=== PATIENT | female | born 1985 | race Caucasian/White ===

== ENCOUNTER 2018-09-22 16:26 | Inpatient (IN) | payer MEDICAID ==
[2018-09-22] MEDS ORDERED: LACTATED RINGER'S 1,000 ML IV (17:30)
[2018-09-22] MEDS ORDERED: GLUCAGON 1 MG INJ IM (19:30)
[2018-09-22] MEDS ORDERED: GLUCOSE GEL 15 GRAM TUBE PO ×2 (19:30)
[2018-09-22] MEDS ORDERED: DEXTROSE 50% 50 ML SYRINGE IV ×2 (19:30)
[2018-09-22] MEDS: LACTATED RINGER'S 1,000 ML IV (19:30)
[2018-09-22] MEDS ORDERED: GLUCOSE GEL 15 GRAM TUBE BUCCAL (19:30)
[2018-09-22 19:47] LABS: ADD MAN DIFF? NO
[2018-09-22 19:49] LABS: WHITE BLOOD COUNT 10.1 10^3/ul (4.8-10.8)
[2018-09-22 19:49] LABS: BASOPHILS % 0.3 % (0.0-2.0); EOSINOPHILS % 0.4 % (0.0-7.0); HEMOGLOBIN 10.8 g/dl (12.0-16.0); LYMPHOCYTES # 2.1 10^3/ul (0.8-2.9); LYMPHOCYTES % 21.1 % (15.0-51.0); MEAN CORPUSCULAR HEMOGLOBIN 21.9 pg (29.0-33.0); MEAN CORPUSCULAR HGB CONC 30.9 g/dl (32.0-37.0); MEAN CORPUSCULAR VOLUME 70.9 fl (82.0-101.0); MEAN PLATELET VOLUME 10.7 fl (7.4-10.4); MONOCYTE # 0.6 10^3/ul (0.3-0.9); MONOCYTES % 6.1 % (0.0-11.0); NEUTROPHIL # 7.2 10^3/ul (1.6-7.5); NEUTROPHILS % 71.6 % (39.0-77.0); PLATELET COUNT 313 10^3/UL (140-415); RED BLOOD COUNT 4.94 10^6/ul (4.20-5.40); RED CELL DISTRIBUTION WIDTH 15.4 % (11.5-14.5)
[2018-09-22 19:53] LABS: INR 0.98; PROTIME 13.1 Sec (11.9-14.9)
[2018-09-22 19:54] LABS: PARTIAL THROMBOPLASTIN TIME 28.3 Sec (23.0-35.0)
[2018-09-22] MEDS: BETAMET NA PHOS/AC(6 MG/ML) 2 ML INJ SYG IM (22:15)
[2018-09-22] MEDS: INSULIN ASPART [NOVOLOG] 3 ML PEN SC (22:18)
[2018-09-23] MEDS: LACTATED RINGER'S 1,000 ML IV ×3 (03:30→19:07)
[2018-09-23] MEDS: INSULIN ASPART [NOVOLOG] 3 ML PEN SC ×4 (07:03→20:44)
[2018-09-23] MEDS: FERROUS SULFATE (EC) 325 MG TAB PO (09:13)
[2018-09-23] MEDS: PRENATAL VITAMIN PO (09:13)
[2018-09-23] MEDS: DOCUSATE SODIUM 100 MG CAP PO (09:13)
[2018-09-23] MEDS: BETAMET NA PHOS/AC(6 MG/ML) 2 ML INJ SYG IM (21:27)
[2018-09-24] MEDS: LACTATED RINGER'S 1,000 ML IV ×3 (02:58→18:33)
[2018-09-24] MEDS: INSULIN ASPART [NOVOLOG] 3 ML PEN SC ×3 (06:54→17:35)
[2018-09-24] MEDS: FERROUS SULFATE (EC) 325 MG TAB PO (09:11)
[2018-09-24] MEDS: PRENATAL VITAMIN PO (09:11)
[2018-09-24] MEDS: DOCUSATE SODIUM 100 MG CAP PO (09:11)
[2018-09-25] MEDS: INSULIN ASPART [NOVOLOG] 3 ML PEN SC ×2 (02:28→20:56)
[2018-09-25] MEDS: LACTATED RINGER'S 1,000 ML IV ×2 (02:37→10:43)
[2018-09-25] MEDS ORDERED: LACTATED RINGER'S 1,000 ML IV (03:01)
[2018-09-25] MEDS ORDERED: METHYLERGONOVINE 0.2 MG INJ IM ×2 (03:30→23:30)
[2018-09-25] MEDS ORDERED: CARBOPROST 250 MCG INJ IM ×2 (03:30→23:30)
[2018-09-25] MEDS ORDERED: OXYTOCIN 30 UNITS/LR 500 ML IV ×3 (03:30→23:30)
[2018-09-25] MEDS ORDERED: MISOPROSTOL 200 MCG TAB PR ×2 (03:30→23:30)
[2018-09-25] MEDS ORDERED: BUTORPHANOL 2 MG INJ IV (03:30)
[2018-09-25] MEDS ORDERED: IBUPROFEN 600 MG TAB PO (03:30)
[2018-09-25] MEDS ORDERED: LIDOCAINE 1% (MPF) 30 ML INJ INJ (03:30)
[2018-09-25] MEDS: MISOPROSTOL 50 MCG CAPSULE PO ×3 (04:04→20:52)
[2018-09-25 07:30] LABS: HEPATITIS B SURFACE ANTIGEN NEGATIVE (NEGATIVE)
[2018-09-25] MEDS: DOCUSATE SODIUM 100 MG CAP PO (08:22)
[2018-09-25] MEDS: FERROUS SULFATE (EC) 325 MG TAB PO (08:22)
[2018-09-25] MEDS: PRENATAL VITAMIN PO (08:22)
[2018-09-25] MEDS: OXYTOCIN 30 UNITS/LR 500 ML IV (13:45)
[2018-09-25] MEDS ORDERED: FENTAnyl 2MCG/ML-ROPIV 0.2% 100 ML BAG EPI (17:30)
[2018-09-25] MEDS ORDERED: DIPHENHYDRAMINE 50 MG INJ IV (17:30)
[2018-09-25] MEDS ORDERED: ONDANSETRON 4 MG INJ IV ×2 (17:30→23:30)
[2018-09-25] MEDS ORDERED: NALOXONE (0.4 MG/ML) INJ IV (17:30)
[2018-09-25 20:20] LABS: RAPID PLASMA REAGIN NONREACTIVE (NR)
[2018-09-25] MEDS: DEXTROSE 5%-LR 1,000 ML IV (20:51)
[2018-09-25] MEDS ORDERED: OXYCODONE/ASPIRIN (4.88/325) TAB PO ×2 (23:30)
[2018-09-25] MEDS ORDERED: NACL 0.9% 3 ML SYG IV (23:30)
[2018-09-25] MEDS ORDERED: ACETAMINOPHEN 325 MG TAB PO (23:30)
[2018-09-25] MEDS ORDERED: WITCH HAZEL/GLYCERIN PAD PR (23:30)
[2018-09-26] MEDS: OXYTOCIN 30 UNITS/LR 500 ML IV ×2 (01:00→04:33)
[2018-09-26] MEDS: LANOLIN HPA 1 PKT TOP (04:35)
[2018-09-26] MEDS: IBUPROFEN 600 MG TAB PO ×5 (05:37→23:39)
[2018-09-26 08:14] LABS: ADD MAN DIFF? NO
[2018-09-26 08:17] LABS: BASOPHIL # 0.1 10^3/ul (0.0-0.1); BASOPHILS % 0.4 % (0.0-2.0); EOSINOPHILS % 0.1 % (0.0-7.0); HEMATOCRIT 35.8 % (37.0-47.0); HEMOGLOBIN 11.2 g/dl (12.0-16.0); LYMPHOCYTES # 2.1 10^3/ul (0.8-2.9); LYMPHOCYTES % 15.3 % (15.0-51.0); MEAN CORPUSCULAR HEMOGLOBIN 22.2 pg (29.0-33.0); MEAN CORPUSCULAR HGB CONC 31.3 g/dl (32.0-37.0); MEAN PLATELET VOLUME 10.5 fl (7.4-10.4); MONOCYTE # 0.9 10^3/ul (0.3-0.9); MONOCYTES % 6.3 % (0.0-11.0); NEUTROPHIL # 10.8 10^3/ul (1.6-7.5); NEUTROPHILS % 77.2 % (39.0-77.0); PLATELET COUNT 291 10^3/UL (140-415); RED BLOOD COUNT 5.04 10^6/ul (4.20-5.40); RED CELL DISTRIBUTION WIDTH 16.1 % (11.5-14.5)
[2018-09-26] MEDS: SENNA/DOCUSATE NA (8.6MG/50MG) TAB PO ×2 (09:49→21:05)
[2018-09-27] MEDS: IBUPROFEN 600 MG TAB PO ×2 (05:38→12:25)
[2018-09-27] MEDS: SENNA/DOCUSATE NA (8.6MG/50MG) TAB PO (09:00)
== END 2018-09-27 17:42 | disposition home or self-care (01) | DRG 807 ==
LOC: PP1 09-26 01:40 → OBT 16:26 → L-D 16:27 → OBT 17:39 → L-D 17:39
PROVIDERS: Obstetrics & Gynecology
PROC: 10E0XZZ Delivery of Products of Conception, External Approach (ICD-10-PCS; principal; 2018-09-25)
PROC: 3E033VJ Introduction of Other Hormone into Peripheral Vein, Percutaneous Approach (ICD-10-PCS; 2018-09-25)
DX: O69.81X0 Labor and delivery complicated by cord around neck, without compression, not applicable or unspecified (principal); Z37.0 Single live birth; O24.419 Gestational diabetes mellitus in pregnancy, unspecified control; Z3A.37 37 weeks gestation of pregnancy
CPT/HCPCS: 62322; 76815; 76818; 82962; 85025; 85610; 85730; 86592; 86900; 86901; 87340; 99464